=== PATIENT | female | born 1995 | race Caucasian/White ===

== ENCOUNTER 2021-07-04 12:26 | Outpatient (REF) | payer MEDICAID, SELFPAY ==
[2021-07-05 22:01] LABS: GC Result Negative (Negative)
[2021-07-06 09:00] LABS: Chlamydia Result Positive (Negative)
== END 2021-07-04 12:27 | disposition home or self-care (01) ==
LOC: LBN 12:26
PROVIDERS: Visit Provider Nurse Practitioner Women's Health
DX: Z11.3 Encounter for screening for infections with a predominantly sexual mode of transmission (principal)
CPT/HCPCS: 87491; 87591